=== PATIENT | male | born 1985 | race African-American/Black ===

== ENCOUNTER 2023-01-17 05:10 | Emergency (ER) | payer MEDICAID ==
[~2023-01-17] VITALS: Ht 177.8 cm; Wt 84.1 kg
[2023-01-17] MEDS ORDERED: SODIUM CHLORIDE 0.9% 1,000 ML IV ONE (05:30)
[2023-01-17] MEDS ORDERED: LORazepam 2MG/ML-1ML VIAL IV ONE (05:30)
[2023-01-17 06:27] LABS: Partial Thromboplastin Time 26.6 sec (24.6-33.4)
[2023-01-17 06:31] LABS: Albumin 4.3 g/dL (3.4-5.0); BUN/Creatinine Ratio 13.3; Bilirubin, Total 0.4 mg/dL (0.2-1.0); Calcium 8.9 mg/dL (8.5-10.1); Magnesium 1.9 mg/dL (1.6-2.6); Potassium 3.7 mmol/L (3.5-5.1); Total Protein 7.6 g/dL (6.4-8.2)
[2023-01-17 06:51] LABS: Urine Bacteria NONE SEEN /hpf (None Seen); Urine Blood Negative /uL (Negative); Urine Mucus FEW (None Seen); Urine Specific Gravity 1.042 (1.001-1.035); Urine WBC 1 /hpf (0 - 3)
[2023-01-17] MEDS ORDERED: ASPirin 325 MG TAB PO ONE (07:00)
[2023-01-17 07:43] LABS: Basophils # (auto) 0 10 ^3/uL (0-0.2); Basophils % (auto) 0.5 % (0.0-2.0); Eosinophils # (auto) 0 10 ^3/uL (0-0.8); Eosinophils % (auto) 0.4 % (0.0-7.0); Hematocrit 41.4 % (41.0-53.0); Hemoglobin 14.1 g/dL (13.5-17.5); Lymphocytes # (auto) 2.3 10 ^3/uL (0.4-5.4); Mean Corpuscular Hemoglobin 29.4 pg (28.0-32.0); Mean Corpuscular Volume 86.3 fL (80.0-100.0); Monocytes # (auto) 0.5 10 ^3/uL (0-1.3); Monocytes % (auto) 9.1 % (0.0-12.0); Neutrophils # (auto) 2.3 10 ^3/uL (1.6-8.6); Nucleated Red Blood Cells % 0.1 %; Red Cell Distribution Width 14.7 % (11.8-14.3); White Blood Cell 5.1 10^3/uL (4.4-10.8)
[2023-01-17] MEDS ORDERED: LISI-716 PO (08:59)
[2023-01-17] MEDS ORDERED: cloNIDine HCL 0.1 MG TAB PO ONE (09:00)
[2023-01-17 09:25] VITALS: BP 147/92
== END 2023-01-17 09:32 | disposition home or self-care (01) ==
LOC: ER 05:10
DX: R07.89 Other chest pain (principal); I10 Essential (primary) hypertension
CPT/HCPCS: 36415; 71045; 80053; 81001; 83735; 83880; 84484; 85025; 85610; 85730; 93005; 96361; 96374; 99285; J2060; J7030